=== PATIENT | male | born 1995 | race Caucasian/White ===

== ENCOUNTER 2019-04-20 13:00 | Emergency (ER) | payer OTHER ==
[~2019-04-20] VITALS: Ht 188 cm; Wt 86.0 kg
[2019-04-20 13:24] VITALS: BP 152/81
[2019-04-20] MEDS ORDERED: morphine 4 MG/ML inj SYRINge IM ONE (13:25)
[2019-04-20] MEDS ORDERED: HYDR-4353 PO (14:51)
== END 2019-04-20 15:10 | disposition home or self-care (01) ==
LOC: ER 13:01
DX: S82.891A Other fracture of right lower leg, initial encounter for closed fracture (principal); W23.0XXA Caught, crushed, jammed, or pinched between moving objects, initial encounter; Y93.89 Activity, other specified; Y92.89 Other specified places as the place of occurrence of the external cause; Y99.9 Unspecified external cause status
CPT/HCPCS: 29515; 73610; 73630; 96372; 99283; J2270